=== PATIENT | male | born 1955 | race Hispanic/Latino ===

== ENCOUNTER 2019-12-14 14:46 | Emergency (ER) | payer MEDICARE, MEDICAID ==
[2019-12-14] MEDS ORDERED: Iopamidol-370 76% 500 ML 1 ML ONE (14:58)
[2019-12-14 15:27] LABS: #Eosinphils 0.1 thou/uL (0.0-0.7); #Monocytes 0.8 thou/uL (0.11-0.59); #Neutrophils 8.1 thou/uL (1.40-6.50); %Basophils 0.2 % (0.0-1.0); %Eosinophils 0.7 % (0.0-10.0); %Lymphocytes 18.2 % (21.0-51.0); %Monocytes 7.4 % (0.0-10.0); %Neutrophils 73.5 % (42.0-75.0); Hemoglobin 15.6 g/dL (14.0-18.0); Mean Corpuscular HGB CONC 35.4 g/dL (32.0-36.0); Mean Platelet Volume 7.3 fL (7.4-10.4); Platelet Count 210 thou/uL (130-400); RBC Distribution Width 11.4 % (11.5-14.5); White Blood Cell (WBC) Count 10.9 thou/uL (4.8-10.8)
[2019-12-14 15:49] LABS: ALT (SGPT) 18 U/L (8-55); AST (SGOT) 14 U/L (5-34); Albumin 4.1 g/dL (3.4-4.8); Alkaline Phosphatase 88 U/L (40-110); Anion Gap 14 mmol/L (10-20); BUN (Urea Nitrogen) 29 mg/dL (8.4-25.7); Bilirubin, Total 1.6 mg/dL (0.2-1.2); Calc. Creatinine Clearance 0 mL/min (70-130); Calcium 9.4 mg/dL (7.8-10.44); Carbon Dioxide 30 mmol/L (23-31); Chloride 91 mmol/L (98-107); Estimated GFR-MDRD 65; Globulin 2.7 g/dL (2.4-3.5); Glucose 424 mg/dL (80-115); Potassium 3.8 mmol/L (3.5-5.1); Protein, Total 6.8 g/dL (5.8-8.1); Sodium 131 mmol/L (136-145)
[2019-12-14] MEDS ORDERED: Ketorolac Tromethamine 30 MG/ML VIAL ONE (17:58)
[2019-12-14] MEDS ORDERED: Ondansetron PF 4 MG/2 ML Vial ONE (17:58)
--- NOTE | 2019-12-14 18:27 | RAD ---
CHEST ONE VIEW: History: Chest pain. Comparison: None. FINDINGS: Lungs are mildly hyperinflated. No pneumothorax. No effusion. Cardiac silhouette and mediastinal cont ours are within normal limits. No acute osseous abnormality. IMPRESSION: No acute intrathoracic abnormality. POS: HOME
--- NOTE | 2019-12-14 19:00 | CT ---
CT of theabdomen and pelvis: 12/14/2019 COMPARISON:None available HISTORY:Abdominal pain, left flank pain TECHNIQUE: Serial axial CT imaging at5 mm intervals from thelung bases through pubic symphysis with I V contrast. Coronal and sagittal reformatted imaging obtained. Findings:The imaged lung bases are unremarkable aside from a tiny nodule within the lingula measuring approximately 3 mm. No free intraperitoneal air or fluid. The liver is mildly hypodense, which may signify steatosis. The gallbladder, spleen, pancreas, adrena l glands, and kidneys demonstrate no acute findings. Scattered areas of pancreatic atrophy noted. Limited evaluation of the bowel without oral contrast media demonstrates no evidence for inflammatory change or obstruction. The appendix appears grossly unremarkable. There is scattered atherosclerotic calcification of the abdominal aorta and its branches. No abdomina l or pelvic lymphadenopathy is noted. Bilateral L5 pars defects are present with anterolisthesis of L5 on S1 measuring approximately 6 mm. Prominent degenerative changes are noted at the L5-S1 level. No acute osseous abnormality is noted. Impression:No acute findings. Numerous incidental findings as described above.
[2019-12-14 19:26] LABS: Bacteria/HPF 4+ HPF (None Seen); Bilirubin Negative (Negative); Blood, Urine Negative (Negative); Clarity Turbid (Clear); Glucose, Urine (Dipstick) Greater than 1000 mg/dL (Negative); Leukocyte 75 Leu/uL (Negative); Nitrite Negative (Negative); Protein, Urine (Dipstick) 30 mg/dL (Neg-Trace); RBC/HPF 0-3 HPF (0-3); Squamous Epithelial 0-3 HPF (0-3); WBC/HPF 21-50 HPF (0-3)
[2019-12-14] MEDS ORDERED: Morphine 4 MG/ML VIAL ONE (21:10)
== END 2019-12-14 22:06 | disposition home or self-care (01) ==
LOC: ERS 14:46
DX: N12 Tubulo-interstitial nephritis, not specified as acute or chronic (principal); E11.9 Type 2 diabetes mellitus without complications; E78.5 Hyperlipidemia, unspecified; I10 Essential (primary) hypertension; F32.9 Major depressive disorder, single episode, unspecified
CPT/HCPCS: 36415; 71045; 74177; 80053; 81003; 81015; 83605; 83690; 84484; 85025; 87804; 93005; 96361; 96374; 96375; J1885; J2270; J2405; Q9967